=== PATIENT | female | born 1995 | race Caucasian/White ===

== ENCOUNTER 2022-05-07 21:03 | Emergency (ER) | payer OTHER ==
[~2022-05-07] VITALS: Ht 167.6 cm; Wt 100.2 kg
[2022-05-07 21:24] VITALS: BP 143/94
--- NOTE | 2022-05-07 21:25 | NUR ---
[employer] #[id number]
--- NOTE | 2022-05-08 01:41 | NUR ---
PATIENT LEFT WITHOUT BEING SEEN BY DR. Rangel. NO FURTHER CARE PROVIDED FOR PATIENT.
[2022-05-09] MEDS ORDERED: IBUP-2213 PO (16:08)
[2022-05-09] MEDS ORDERED: PROM118S5 PO (16:08)
[2022-05-09] MEDS ORDERED: SUD30 PO (16:08)
== END 2022-05-08 01:41 | disposition left against medical advice (07) ==
LOC: MED 21:03
DX: R05.9 Cough, unspecified (principal); R09.81 Nasal congestion; R07.9 Chest pain, unspecified; R06.89 Other abnormalities of breathing; Z53.21 Procedure and treatment not carried out due to patient leaving prior to being seen by health care provider
CPT/HCPCS: 99281

== ENCOUNTER 2022-05-09 15:10 | Emergency (ER) | payer OTHER ==
[~2022-05-09] VITALS: Ht 167.6 cm; Wt 102.1 kg
[2022-05-09 15:33] VITALS: BP 137/98
[2022-05-09] MEDS ORDERED: IBUP-2213 PO (16:08)
[2022-05-09] MEDS ORDERED: SUD30 PO (16:08)
[2022-05-09] MEDS ORDERED: PROM118S5 PO (16:08)
--- NOTE | 2022-05-09 18:02 | NUR ---
A/OX4 VSS VERBALIZED UNDERSTANDING OF DC INSTRUCTIONS AMBULATED WITH STEADY GAIT
--- NOTE | 2022-05-09 18:03 | NUR ---
Patient discharged with v/s stable. Written and verbal after care instructions given and explained. Patient verbalized understanding. Ambulatory with steady gait. All questions addressed prior to discharge. Advised to follow up with PMD.
== END 2022-05-09 18:02 | disposition home or self-care (01) ==
LOC: MED 15:10
DX: J06.9 Acute upper respiratory infection, unspecified (principal); M94.0 Chondrocostal junction syndrome [Tietze]; R07.89 Other chest pain
CPT/HCPCS: 99283

== ENCOUNTER 2023-02-14 08:49 | Emergency (ER) | payer OTHER ==
[~2023-02-14] VITALS: Ht 167.6 cm; Wt 90.7 kg
[~2023-02-14 08:49] MED LIST: IBUP-2213 PO; PROM118S5 PO; SUD30 PO
[2023-02-14 09:16] VITALS: BP 113/76; PULSE 89; RESP 18; TEMP 98; O2SAT 98
[2023-02-14] MEDS ORDERED: KETOROLAC 60 MG/2 ML VIAL IM ONE (09:30)
[2023-02-14 09:31] LABS: BILIRUBIN,URINE NEGATIVE (NEGATIVE); BLOOD, URINE 3+ (NEGATIVE); COLOR,URINE YELLOW (YELLOW); LEUKOCYTE ESTERASE ,URINE TRACE (NEGATIVE); NITRITE, URINE NEGATIVE (NEGATIVE); PROTEIN,URINE 2+ (NEGATIVE); UGLUCOSE NEGATIVE (NEGATIVE); UROBILINOGEN,URINE 0.2 EU/dL (0.2 - 1)
[2023-02-14 09:46] LABS: APPEARANCE,URINE SLIGHTLY HAZY (CLEAR)
[2023-02-14 09:48] LABS: BACTERIA,URINE FEW /HPF (None Seen)
[2023-02-14 09:50] LABS: RBC,URINE 11-20 (MOD) /HPF (0-5)
[2023-02-14 10:20] VITALS: O2SAT 98
[2023-02-14 10:20] LABS: BASOPHILS % (AUTO) 0.2 % (0.0-2.0); EOSINOPHILS # (AUTO) 0.2 K/uL (0-0.4); EOSINOPHILS % (AUTO) 1.6 % (0.0-4.0); HEMATOCRIT 38.2 % (36-48); HEMOGLOBIN 12.9 g/dL (12.0-16.0); LYMPHOCYTES # (AUTO) 2.6 K/uL (2.5-16.5); LYMPHOCYTES % (AUTO) 23.9 % (20.5-51.1); MEAN CORPUSCULAR HEMOGLOBIN 29 pg (27-31); MEAN CORPUSCULAR HGB CONC 34 g/dL (33-37); MEAN CORPUSCULAR VOLUME 85.1 fL (80-94); MONOCYTES # (AUTO) 0.8 K/uL (0.8-1.0); MONOCYTES % (AUTO) 7.1 % (1.7-9.3); NEUTROPHILS # (AUTO) 7.2 K/uL (1.8-7.7); NEUTROPHILS % (AUTO) 67.2 % (42.2-75.2); PLATELET COUNT (AUTO) 335 K/uL (140-450); RED BLOOD CELL COUNT(AUTO) 4.49 MIL/uL (4.20-5.40); RED CELL DISTRIBUTION WIDTH 14.2 % (11.6-13.7); WHITE BLOOD COUNT (AUTO) 10.8 K/uL (4.8-10.8)
[2023-02-14 10:30] LABS: ANION GAP 15.5 (8-16); CALCIUM 8.5 mg/dL (8.5-10.1); CARBON DIOXIDE 24.9 mmol/L (21-32); CREATININE 0.7 mg/dL (0.6-1.3); POTASSIUM 3.4 mmol/L (3.5-5.1)
[2023-02-14 10:38] LABS: TOTAL BILIRUBIN 0.2 mg/dL (0.0-1.0); TOTAL PROTEIN, SERUM 8.9 g/dL (6.4-8.2)
[2023-02-14] MEDS ORDERED: IBUP-2213 PO (11:24)
[2023-02-14] MEDS ORDERED: NITR100C7 PO (11:24)
== END 2023-02-14 11:35 | disposition home or self-care (01) ==
LOC: MED 08:49
DX: N39.0 Urinary tract infection, site not specified (principal); N83.201 Unspecified ovarian cyst, right side; Z79.899 Other long term (current) drug therapy; Z79.1 Long term (current) use of non-steroidal anti-inflammatories (NSAID)
CPT/HCPCS: 36415; 76856; 80048; 80076; 81001; 81025; 83690; 85025; 87086; 96372; 99285; J1885

== ENCOUNTER 2023-07-10 10:57 | Emergency (ER) | payer OTHER ==
[~2023-07-10] VITALS: Ht 172.7 cm; Wt 89.8 kg
[~2023-07-10 10:57] MED LIST changes: +NITR100C7 PO
[2023-07-10 11:15] VITALS: BP 125/80; PULSE 98; RESP 20; TEMP 98; O2SAT 99
[2023-07-10] MEDS: NACL 0.9% 1,000 ML IV ONE (12:16)
[2023-07-10] MEDS: diphenhydrAMINE 50 MG/ML VIAL IVP ONE (12:18)
[2023-07-10] MEDS: METOCLOPRAMIDE 10 MG/2 ML INJ VIAL IVP ONE (12:20)
[2023-07-10] MEDS: KETOROLAC 30 MG/ML VIAL IVP ONE (12:23)
[2023-07-10 15:40] VITALS: BP 103/69; PULSE 75; RESP 8; TEMP 36.89184; O2SAT 98
== END 2023-07-10 15:40 | disposition home or self-care (01) ==
LOC: MED 10:57
DX: R51.9 Headache, unspecified (principal); Z79.899 Other long term (current) drug therapy
CPT/HCPCS: 81025; 96361; 96374; 96375; 99284; J1200; J1885; J2765; J7030